=== PATIENT | female | born 2000 | race Caucasian/White ===

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

== ENCOUNTER 2023-07-19 13:15 | Emergency (ER) | payer MEDICAID, SELFPAY ==
[2023-07-19 13:30] VITALS: BP 117/51; PULSE 88; RESP 20; TEMP 36.9; O2SAT 98; BMI 20.6
--- NOTE | 2023-07-19 13:39 | EXP.UTC ---
Discharge Plan Disposition Patient Disposition: Home, Self-Care Condition: Good Prescriptions Prescriptions: New ciprofloxacin HCl [Cipro] 500 mg tablet 500 mg PO BID 10 Days Qty: 20 0RF metronidazole 500 mg tablet 500 mg PO BID Qty: 20 0RF No Action cetirizine [Zyrtec] 10 mg tablet 10 mg PO QDAY 90 Days Qty: 90 3RF diphenhydramine HCl [Benadryl] 25 mg capsule 25 mg PO HS Qty: 90 0RF triamcinolone acetonide 0.025 % lotion See Rx Instructions .ROUTE .COMPLEX Qty: 60 0RF Dose Instruction: APPLY LOTION TOPICALLY TWICE DAILY Rx Instructions: APPLY LOTION TOPICALLY TWICE DAILY patient needs an appt before anymore refills Referrals Follow up/Referrals: Hamlet Garcia MD [Staff Physician] - See instructions Gustavo Shore MD [Primary Care Provider] - See instructions Activity Restrictions/Add. Instructions Additional Instructions/Restrictions: Keep the affected area clean and dry. Follow up with your regular doctor. Follow up with Dr. Garcia (surgery). If this abscess has to be drained this is who you would want to have drain it. Take the antibiotics as directed. Don't drink alcohol while you are on the flagyl (metronidazole). Apply warm wet compresses (or sit in a warm tub or salt water) to the affected area three or four times per day. GO TO THE ER FOR ANY WORSENING SYMPTOMS Clinical Impressions Clinical Impression: Abscess, perirectal Instructions Patient Instructions: Boil Discharge ED Provider: Jose Vyas [facility] General Stated complaint: possible vagina cyst Mode of Arrival: Ambulatory Source of Information: Patient Limitations: No Limitations Time Seen by Provider: 07/19/23 13:39 Description of Symptoms (Recalled from Triage Doc. by RN): PATIENT C/O BOIL/CYST NEAR VAGINAL AREA X 2 WEEKS HEENT Symptoms (Recalled from RN notes): No Resp Symptoms (Recalled from RN notes): No Skin Symptoms (Recalled from RN notes): No MS Symptoms (Recalled from RN notes): No Functional Status (Recalled from RN notes): WNL History of Present Illness Provider Complaint: She states that for the past 1 week she has had a boil close to her anal area. She states that the area has began to swell and become more painful. She denies any fever/chills. Related Data Previous Rx's Medication Instructions Recorded cetirizine 10 mg tablet (Zyrtec) 10 mg PO QDAY 90 days #90 tabs 11/22/21 diphenhydramine HCl 25 mg capsule 25 mg PO HS #90 caps 11/22/21 (Benadryl) triamcinolone acetonide 0.025 % See Rx Instructions .Route 03/17/23 lotion .COMPLEX #60 mL ciprofloxacin HCl 500 mg tablet 500 mg PO BID 10 days #20 tabs 07/19/23 (Cipro) metronidazole 500 mg tablet 500 mg PO BID #20 tabs 07/19/23 Allergies Allergy/AdvReac Type Severity Reaction Status Date / Time No Known Allergies Allergy Verified 11/22/21 15:50 Worker's Comp Is this a Worker's Comp case?: [facility] Dis[facility]: The information contained in this section may have been updated after the patient was seen, as this information can be updated by other users. Social History Smoking Status: Never smoker alcohol intake: never substance use type: denies use current occupational status: student Travel in the last 8 weeks: None household members: family housing: house ROS Obtained: Yes All systems reviewed & no additional complaints except as documented Constitutional Constitutional: Denies chills and Denies fever(s) Eyes Eyes: Denies eye discharge ENT Ears, Nose, Mouth, and Throat: Denies dizziness, Denies otalgia and Denies sore throat Cardiovascular Cardiovascular: Denies chest pain Respiratory Respiratory: Denies shortness of breath, Denies chest congestion, Denies cough, Denies stridor and Denies wheezing Gastrointestinal Gastrointestingal: Denies nausea or vomiting Musculoskeletal Musculoskeletal: Reports system reviewed and no additional complaints, except
[2023-07-19 14:25] VITALS: BP 117/51; PULSE 88; RESP 20; TEMP 36.9; O2SAT 98
== END 2023-07-19 14:31 | disposition home or self-care (01) ==
PROVIDERS: Emergency Provider Nurse Practitioner Family; PCP Emergency Medicine
DX: K61.1 Rectal abscess (principal)
CPT/HCPCS: 96372; 99204; 99212; G0463

== ENCOUNTER 2023-09-23 07:18 | Emergency (ER) | payer MEDICAID, SELFPAY ==
[2023-09-23 07:20] VITALS: BP 120/87; PULSE 76; RESP 20; TEMP 36.8; O2SAT 100; BMI 19.2
--- NOTE | 2023-09-23 07:30 | CT_ITS ---
FINAL REPORT TECHNIQUE: Axial CT images were obtained through the facial bones/sinuses. Coronal reformats were obtained. This study was performed with techniques to keep radiation doses as low as reasonably achievable (ALARA). Individualized dose reduction techniques using automated exposure control or adjustment of mA and/or kV according to the patient's size were employed. CLINICAL HISTORY: nasal trauma, swelling and bruising FINDINGS: There is a mildly displaced fracture of the right nasal bone. The orbits are intact. The globes are unremarkable. The visualized sinuses are clear. There is no soft tissue abnormality. IMPRESSION: Mildly displaced right nasal bone fracture. Reviewed, Interpreted and Dictated by Henry Romeo MD Transcribed by Vazquez Albarran Authenticated and [facility]
--- NOTE | 2023-09-23 07:31 | ED_ITS ---
Discharge Plan Disposition Patient Disposition: Home, Self-Care Prescriptions Prescriptions: No Action cetirizine [Zyrtec] 10 mg tablet 10 mg PO QDAY 90 Days Qty: 90 3RF diphenhydramine HCl [Benadryl] 25 mg capsule 25 mg PO HS Qty: 90 0RF triamcinolone acetonide 0.025 % lotion See Rx Instructions .ROUTE .COMPLEX Qty: 60 0RF Dose Instruction: APPLY LOTION TOPICALLY TWICE DAILY Rx Instructions: APPLY LOTION TOPICALLY TWICE DAILY patient needs an appt before anymore refills ciprofloxacin HCl [Cipro] 500 mg tablet 500 mg PO BID 10 Days Qty: 20 0RF metronidazole 500 mg tablet 500 mg PO BID Qty: 20 0RF Referrals Follow up/Referrals: Ash Wade MD [Physician] - See instructions Amber Aguirre PA [Primary Care Provider] - See instructions Eb Castillo III, MD [Staff Physician] - See instructions Poppy Blount APRN [Nurse Practitioner] - See instructions Activity Restrictions/Add. Instructions Additional Instructions/Restrictions: You were evaluated in the emergency department today. You were diagnosed with a nasal bone fracture. Please follow-up with the ENT for further evaluation and management of this. You will need to call them to schedule an appointment. We are providing you with information for our local ENT's. Take Tylenol and ibuprofen every 4-6 hours as needed for pain. Return to the emergency department for new or worsening symptoms. Sinus precautions: * No Nose blowing. * No flying, swimming or deep water submersion. * Avoid straining with bowel movements. * No strenuous activity or lifting/pushing objects weighing more than 20 pounds. * Sleep with your head elevated on 2 pillows. * No smoking/vaping. Clinical Impressions Clinical Impression: Closed fracture nasal bone Qualifiers: Encounter type: initial encounter Qualified Code(s): S02.2XXA - Fracture of nasal bones, initial encounter for closed fracture Instructions Patient Instructions: DI for Nose Fracture, DI for Acute Pain -- Adult Discharge ED Provider: Heather Hermosillo General Adult HPI General Chief complaint: PAIN Stated complaint: swollen nose possible broke nose Time Seen by Provider: 09/23/23 07:23 Mode of Arrival: Ambulatory Source of Information: Patient Limitations: No Limitations Description of Symptoms (Recalled from ER Triage Doc. by RN): Patient reports she was wrestling with a family member 20 minutes ago and got hit in the nose. Swelling is present to the nose. Patient rates pain 8/10. Patient reports a head ache as well. History of Present Illness HPI narrative: This patient is a 23-year-old female who denies significant past medical history presenting to the emergency department for evaluation with concern for nasal pain and swelling. Patient reports that she was wrestling with a family member approximately 20 minutes ago when she was head butted in the nose. She complains of significant swelling and pressure to her face. Pain is an 8 out of 10. She also has a mild headache. She did not lose consciousness. No nasal bleeding noted. She was well prior to this and denies any other injuries. She does not take any anticoagulation. Related Data Previous Rx's Medication Instructions Recorded cetirizine 10 mg tablet (Zyrtec) 10 mg PO QDAY 90 days #90 tabs 11/22/21 diphenhydramine HCl 25 mg capsule 25 mg PO HS #90 caps 11/22/21 (Benadryl) triamcinolone acetonide 0.025 % See Rx Instructions .Route 03/17/23 lotion .COMPLEX #60 mL ciprofloxacin HCl 500 mg tablet 500 mg PO BID 10 days #20 tabs 07/19/23 (Cipro) metronidazole 500 mg tablet 500 mg PO BID #20 tabs 07/19/23 Allergies Allergy/AdvReac Type Severity Reaction Status Date / Time No Known Allergies Allergy Verified 11/22/21 15:50 [facility] Disclaimer: The information contained in this section may have been updated after the patient was seen, as this information can be updated by other users. Social History Smoking Status: Current every day smoker alcohol intake: never substance use type: denies use current occupational status: student Travel in the last 8 weeks: None household members: family housing: house ROS Obtained: Yes All systems reviewed & no additional complaints except as documented Physical Exam General General appearance: alert and in no apparent distress Head Head exam: other (Nasal bridge swelling) Eye Eye exam: Present normal appearance, PERRL and EOMI ENT ENT exam: Present normal oropharynx, mucous membranes moist and normal external ear exam Expanded ENT Exam Nose exam: Present other (Swelling of the nasal bridge without significant deviation. No septal hematoma. Some blood in the left nostril); Absent septal hematoma Neck Neck exam: Present normal inspection, full ROM and trachea midline; Absent tenderness Chest Chest inspection: Present normal inspection and symmetric chest wall rise; Absent tenderness Respiratory Respiratory exam: Present normal lung sounds bilaterally; Absent respiratory distress, wheezes, stridor or accessory muscle use Cardiovascular Cardiovascular exam: Present regular rate and normal rhythm Abdominal Exam Abdominal exam: Present soft; Absent distention, tenderness or guarding Extremities Exam Extremities exam: Present normal inspection, full ROM and normal capillary refill; Absent tenderness or edema Back Exam Back exam: Present normal inspection and full ROM; Absent tenderness Neurological Exam Neurological exam: Present alert, oriented X3, CN II-XII intact and normal gait; Absent motor sensory deficit Psychiatric Psychiatric exam: Present normal affect and normal mood Skin Skin exam: Present warm and dry Medical Decision Making Medical Records Medical records reviewed: Yes I reviewed the patient's medical records. Tc Inquiry Pt receiving controlled substance: No Vital Signs: 09/23/23 07:20 09/23/23 10:03 09/23/23 10:06 Temperature 98.3 F 98.3 F 98.0 F Temperature Source Oral Oral Oral Pulse Rate 94 H 90 Pulse Rate [Right Radial] 76 Respiratory Rate 20 18 16 Blood Pressure 114/76 114/76 Blood Pressure [Right Arm] 120/87 Blood Pressure Mean [Right Arm] 98 Blood Pressure Source Automatic Cuff Blood Pressure Source [Right Arm] Automatic Cuff Blood Pressure Position Sitting Blood Pressure Position [Right Arm] Sitting 02 Sat by Pulse Oximetry 100 Oxygen Delivery Method Room Air Room Air Room Air Lab Data Lab results reviewed: Yes I reviewed the patient's lab results. Lab Results 09/23/23 07:38: Urine HCG, Qual Negative Orders (Tests/Meds): ED MEDICATIONS Discontinued Medications Generic Name Dose Route Start Last Admin Trade Name Freq PRN Reason Stop Dose Admin Acetaminophen 1,000 mg 09/23/23 07:30 09/23/23 07:36 Acetaminophen 500mg Tab PO 09/23/23 07:31 1,000 mg ONCE ONE Administration Ibuprofen 800 mg 09/23/23 07:30 09/23/23 07:36 Ibuprofen 400 Mg Tablet PO 09/23/23 07:31 800 mg ONCE ONE Administration ORDERS Category Date Time Status CT facial bones wo con Stat Cat Scan 09/23/23 07:30 Completed Urine , HCG Qual. Stat Lab 09/23/23 07:38 Completed Medical Decision Narrative: In summary, this patient is a 23-year-old female presenting to the Emergency Department for evaluation of nasal pain and swelling after being hit by a while wrestling. Differential diagnoses considered include but are not limited to nasal fracture, septal hematoma, facial fracture, concussion. Ruling out the most morbid conditions drove assessment. On exam, the patient is well-appearing without significant septal deviation or septal hematoma. Workup included CT scan of the face without contrast. She was given oral Tylenol and ibuprofen for pain.. I independently interpreted CT scan prior to the radiologist read and noted displaced right nasal bone fracture. Please see their read for final interpretation. Given that the patient does not have severe displacement and has no septal hematoma, feel that she is appropriate for discharge with outpatient follow-up with ENT. She was given instructions for supportive management, sinus precautions, and instructions for close patient follow-up with ENT. She was given strict return precautions. She was discharged in stable condition after all questions were answered. Critical Care Critical Care Time Critical Care Time: No
[2023-09-23] MEDS: ACETAMINOPHEN 500MG TAB 1000 MG PO (07:36)
[2023-09-23] MEDS: IBUPROFEN 400 MG TABLET 800 MG PO (07:36)
[2023-09-23 08:24] LABS: Urine Pregnancy, HCG Qual. Negative (Negative)
--- NOTE | 2023-09-23 09:47 | PC.NURSE ---
DR PEDERSON AT BEDSIDE TO UPDATE PT AND FAMILY
[2023-09-23 10:03] VITALS: BP 114/76; PULSE 94; RESP 18; TEMP 36.8; O2SAT 97
[2023-09-23 10:06] VITALS: BP 114/76; PULSE 90; RESP 16; TEMP 36.7; O2SAT 98
== END 2023-09-23 10:05 | disposition home or self-care (01) ==
PROVIDERS: Emergency Provider Emergency Medicine; PCP Physician Assistant
DX: S02.2XXA Fracture of nasal bones, initial encounter for closed fracture (principal); W50.0XXA Accidental hit or strike by another person, initial encounter; R51.9 Headache, unspecified; F17.200 Nicotine dependence, unspecified, uncomplicated
CPT/HCPCS: 70486; 81025; 99284

== ENCOUNTER 2024-04-29 11:23 | Outpatient (CLI) | payer MEDICAID, SELFPAY ==
--- NOTE | 2024-04-29 11:28 | XR_ITS ---
FINAL REPORT TECHNIQUE: Chest PA & Lateral CLINICAL HISTORY: Chest wall mass, knot above left breast on chest wall COMPARISON: None FINDINGS: 2 views of the chest were performed. The heart size is normal. The mediastinum is within normal limits. There is no acute cardiopulmonary process. There are no pleural effusions. There is no pneumothorax. The bony thorax appears intact. IMPRESSION: No acute cardiopulmonary process. Reviewed, Interpreted and Dictated by Henry Romeo MD Transcribed by Paty Jonas Authenticated and [facility]
== END 2024-04-29 23:59 | disposition home or self-care (01) ==
LOC: RAD 11:24
PROVIDERS: PCP Physician Assistant; Visit Provider Physician Assistant
DX: R22.2 Localized swelling, mass and lump, trunk (principal)
CPT/HCPCS: 71046

== ENCOUNTER 2024-05-11 19:27 | Emergency (ER) | payer MEDICAID, SELFPAY ==
[2024-05-11 19:27] VITALS: BP 150/82; PULSE 83; RESP 19; TEMP 36.6; O2SAT 100; BMI 20.1
--- NOTE | 2024-05-11 19:27 | ECG_ITS ---
APPROVED REPORT Exam: Resting ECG HR:92 bpm ECG Measurements Heart Rate 92 AXES MI 149 P 73 QRSd 84 QRS 71 QT 323 T 53 QTc 373 Conclusion sinus rhythm Electronically signed by : JASMINE SUBRAMANIAN, 05/11/2024 21:05:31
--- NOTE | 2024-05-11 19:34 | XR_ITS ---
PROCEDURE INFORMATION: Exam: XR Chest Exam date and time: 05/11/2024 8:16 PM Age: 24 years old Clinical indication: Pain; Chest pressure; Additional info: L sided cp mild, non radiating TECHNIQUE: Imaging protocol: Radiologic exam of the chest. Views: 1 view. COMPARISON: CR XR CHEST 2V 04/29/2024 11:30 AM FINDINGS: Lungs: No evidence of acute pulmonary disease or infiltrates Pleural spaces: No large effusion or pneumothorax. Heart/Mediastinum: No evidence of mediastinal widening or cardiac silhouette enlargement; the mediastinum and heart appear within normal limits for contour and size. Bones/joints: No evidence of acute osseous abnormalities within the visualized portions of the thoracic spine and ribs. Osseous structures appear appropriate for patient age. IMPRESSION: No dense parenchymal consolidation, pleural effusion, or pneumothorax.
[2024-05-11] MEDS: KETOROLAC 30MG/ML VIAL 15 MG IV (19:43)
[2024-05-11 19:46] LABS: Basophils # 0.1 K/mm3 (0-0.2); Basophils % 0.9 % (0.1-2.0); Eosinophils # 0.1 K/mm3 (0.0-0.4); Eosinophils % 1.2 % (0.1-12.0); Hematocrit 43.4 % (37.0-47.0); Hemoglobin 13.8 g/dL (12.2-16.2); Lymphocytes # 2.9 K/mm3 (0.7-4.5); Lymphocytes % 31.8 % (10-50); Mean Corpuscular HGB Conc 31.8 g/dL (31.8-35.4); Mean Corpuscular Hemoglobin 30.7 pg (27.0-31.2); Mean Corpuscular Volume 96.6 fl (81-99); Mean Platelet Volume 8.1 fl (7.4-10.4); Monocytes # 0.8 K/mm3 (0.1-1.0); Monocytes % 8.4 % (1.7-9.3); Neutrophils # 5.3 K/mm3 (1.8-7.8); Neutrophils % 57.7 % (37.0-80.0); Platelet Count 276 K/mm3 (142-424); Red Blood Count 4.49 M/mm3 (4.20-5.40); Red Cell Distribution Width 12.5 % (11.5-17.5); White Blood Count 9.2 K/mm3 (4.8-10.8)
[2024-05-11 19:51] LABS: Alanine Aminotransferase 16 U/L (12-78); Albumin Level 4.7 g/dl (3.5-5.0); Albumin/Globulin Ratio 1.5 (1.1-1.8); Alkaline Phosphatase 40 U/L (38-126); Anion Gap 11.5 mEq/L (5-15); Aspartate Amino Transferase 25 U/L (14-36); Bilirubin,Total 0.6 mg/dl (0.2-1.3); Blood Urea Nitrogen 12 mg/dl (7-17); Calcium 9.5 mg/dl (8.4-10.2); Carbon Dioxide 26 mmol/L (22.0-30.0); Chloride 105 mmol/L (98-107); Creatinine Clearance Estimated 85 mL/min (50-200); Estimated Glomerular Filt Rate 88 ml/min (>60); GFR (African American) 107 ML/MIN (>60); Globulin 3.2 g/dL (1.3-3.2); Glucose 81 mg/dl (74-100); Magnesium 1.9 mg/dl (1.6-2.3); Potassium 3.5 mmoL/L (3.5-5.1); Sodium 139 mmol/L (136-145); Total Protein,Serum 7.9 g/dl (6.3-8.2)
[2024-05-11 20:00] VITALS: BP 111/73; PULSE 66; RESP 16; O2SAT 100
[2024-05-11 20:17] LABS: HCG,Quantitative < 2 mIU/ml (0-5.42); Troponin I < 0.01 ng/ml (0.00-0.034)
--- NOTE | 2024-05-11 20:17 | [facility].EDGENADL ---
Discharge Plan Disposition Patient Disposition: Home, Self-Care Chief Complaint: PAIN Prescriptions Prescriptions: No Action No Known Home Medications Referrals Follow up/Referrals: Amber Aguirre PA [Primary Care Provider] - See instructions Activity Restrictions/Add. Instructions Additional Instructions/Restrictions: Follow-up with your family doctor regarding this visit to the emergency department to establish care and ensure improvement of symptoms. Take Tylenol 1000 mg every 6 hours (4 times daily) and ibuprofen 400 mg every 6 hours (4 times daily) as needed with food and water to prevent GI upset and kidney damage. Clinical Impressions Clinical Impression: Chest pain Print Language Print Language: Tajik Discharge ED Provider: Sukumar Murdock General Adult HPI General Chief complaint: PAIN Stated complaint: painful lump on chest Time Seen by Provider: 05/11/24 19:34 Mode of Arrival: Ambulatory Source of Information: Patient Limitations: No Limitations Description of Symptoms (Recalled from ER Triage Doc. by RN): 24 F presents with c/o a painful lump to her left chest that started approximately 1 month ago. Patient stated this pain is now a pinching pain and she would like it to be checked out. She does not believe she is having cardiac issues. No medical history otherwise. NAD, VSS History of Present Illness HPI narrative: Please note that above description of symptoms, in this electronic medical record under categorization of recalled from ER triage doctor by RN are reflective of an initial nursing assessment, however, is not reflective of my full history and physical exam that was personally taken and clarified. Consequentially, this preceding description of symptoms, which may include the patient's categorized chief complaint in the EMR, do not reflect my personal clinical impression, and the ultimate description of history of present illness and patient stated complaints should be deferred to this section of the note. Unless stated otherwise or congruent with this section of the note, additional signs, symptoms, or incongruence should be interpreted as inaccurate with my clinical impression. Related Data Home Medications ?Medication ?Instructions ?Recorded ?Confirmed No Known Home Medications 04/29/24 04/29/24 Allergies Allergy/AdvReac Type Severity Reaction Status Date / Time No Known Allergies Allergy Verified 04/29/24 10:57 [facility] Disclaimer: The information contained in this section may have been updated after the patient was seen, as this information can be updated by other users. Social History (Reviewed 09/23/23 @ 07:32 by OSIRIS Cesar Smoking Status: Current every day smoker alcohol intake: never substance use type: denies use current occupational status: student Travel in the last 8 weeks: None household members: family housing: house ROS Obtained: Yes All systems reviewed & no additional complaints except as documented Physical Exam General General appearance: alert Head Head exam: atraumatic and normocephalic Eye Eye exam: Present normal appearance, PERRL and EOMI Neck Neck exam: Present trachea midline Chest Chest inspection: Present normal inspection and symmetric chest wall rise Respiratory Respiratory exam: Present normal lung sounds bilaterally; Absent respiratory distress, wheezes, stridor, accessory muscle use or prolonged expiratory phase Cardiovascular Cardiovascular exam: Present regular rate, normal rhythm and other (Pulses equal and symmetric in upper and lower extremities) Abdominal Exam Abdominal exam: Present soft; Absent distention, tenderness or pulsatile mass Extremities Exam Extremities exam: Absent edema Neurological Exam Neurological exam: Present alert, oriented X3 and CN II-XII intact Skin Skin exam: Present warm and dry; Absent cyanosis, diaphoresis or pallor Medical Decision Making Medical Records Medical records reviewed: Yes I reviewed the patient's medical records. Tc Inquiry Pt receiving controlled substance: No Tc was queried for this patient: No Vital Signs: 05/11/24 19:27 05/11/24 20:00 05/11/24 20:30 Temperature 97.8 F Temperature Source Oral Pulse Rate 66 79 Pulse Rate [Left] 83 Respiratory Rate 19 16 11 L Blood Pressure 111/73 122/75 Blood Pressure [Right Arm] 150/82 H Blood Pressure Mean [Right Arm] 104 Blood Pressure Source [Right Arm] Automatic Cuff Blood Pressure Position [Right Arm] Sitting 02 Sat by Pulse Oximetry 100 100 99 Oxygen Delivery Method Room Air Lab Data Lab Results 05/11/24 19:27: WBC 9.2, RBC 4.49, Hgb 13.8, Hct 43.4, MCV 96.6, MCH 30.7, MCHC 31.8, RDW 12.5, Plt Count 276, MPV 8.1, Neut % (Auto) 57.7, Lymph % (Auto) 31.8, [place] % (Auto) 8.4, Eos % (Auto) 1.2, Baso % (Auto) 0.9, Neut # (Auto) 5.3, Lymph # (Auto) 2.9, [place] # (Auto) 0.8, Eos # (Auto) 0.1, Baso # (Auto) 0.1, Sodium 139, Potassium 3.5, Chloride 105, Carbon Dioxide 26, Anion Gap 11.5, BUN 12, Creatinine 0.80, Estimated Creat Clear 85, Estimated GFR 88, Est GFR ( Amer) 107, Glucose 81, Calcium 9.5, Magnesium 1.9, Total Bilirubin 0.6, AST 25, ALT 16, Alkaline Phosphatase 40, Troponin I < 0.01, Total Protein 7.9, Albumin 4.7, Globulin 3.2, Albumin/Globulin Ratio 1.5, HCG, Quant < 2 05/11/24 19:27 05/11/24 19:27 Orders (Tests/Meds): ED MEDICATIONS Discontinued Medications Generic Name Dose Route Start Last Admin Trade Name Freq PRN Reason Stop Dose Admin Ketorolac Tromethamine 15 mg 05/11/24 19:38 05/11/24 19:43 Ketorolac 30mg/Ml Vial IV 05/11/24 19:39 15 mg ONCE ONE Administration ORDERS Category Date Time Status CXR --portable [XR chest portable] Stat Exams 05/11/24 19:34 Taken CBC w/Auto Diff [Complete Blood Count Auto Diff] Stat Lab 05/11/24 19:27 Completed CMP [Comprehensive Metabolic Panel] Stat Lab 05/11/24 19:27 Completed HCG,Quantitative Stat Lab 05/11/24 19:27 Completed Magnesium Stat Lab 05/11/24 19:27 Completed Trop I [Troponin I] Stat Lab 05/11/24 19:27 Completed Troponin I Q3H Lab 05/11/24 22:45 Ordered Troponin I Q3H Lab 05/12/24 01:45 Ordered Medical Decision Narrative: 24-year-old female history of anxiety presenting with multiple complaints. Patient states that she has had chest pain on and off for the past few weeks that is associated with a lump on my chest. States that she saw her family doctor earlier today, 05/11 and chest x-ray was performed and reportedly normal. Patient states that intermittent throughout the day, feels like she is receiving sharp pokes, just over this lump, in her chest. Mild in intensity, does not radiate. No fevers or chills, nausea or vomiting, shortness of breath, cough, hemoptysis, chance of , or any other concerns. Last menstrual period was 8/ and normal for her.. History was obtained via conversation with patient. On arrival, patient hemodynamically stable, alert, oriented x4, appropriate, GCS 15, moving all extremities spontaneously, pupils equal and reactive to light. Full physical exam performed and significant for very well-appearing female who is in no acute distress. Lump, on her chest is costochondral joint and is nontender. Bilateral breath sounds without any abnormalities. Cardiac exam with normal S1-S2, no murmurs gallops or rubs. Pulses equal and symmetric in upper and lower extremities without delay. Differential includes anxiety, costochondritis, pericarditis, less likely to be ACS, UT, PE, among others. Patient placed on continuous cardiac monitoring and continuous pulse ox with initial blood pressure 150/82, heart rate 3, saturation 100% on room air. Independent interpretation of EKG shows performed at 1927 read at 1927. Sinus rhythm 92 beats a minute with no ischemic change. GA 149, QRS 84, QTc 373. Patient was given Toradol IV for symptomatic management and correction of underlying abnormalities. Workup independently interpreted and significant for nonactionable CBC or chemistry. Troponin negative, hCG negative. On independent interpretation of imaging, no acute cardiopulmonary space disease on chest x-ray. See radiology read for full review of final results. Heart score 0. I feel this is most likely related to costochondritis versus anxiety. Because patient at baseline without signs or symptoms of clinical decompensation, deemed appropriate for discharge. Results were relayed to patient who voiced understanding and were agreeable to outpatient management and follow up. I discussed my clinical impression with patient and answered all questions. At this time, the evidence for any other entities in the differential is insufficient to warrant any further testing or ED observation. This was explained as well. Advisory was given that persistent or worsening symptoms require further evaluation. I confirmed the understanding of this discussion. Tape Cutter disclaimer Much of this encounter note is an electronic plunger machine operator spoken language to printed text. Electronic plunger machine operator of the spoken language may permit errors. Although I have reviewed the note, some errors may still exist. Critical Care Critical Care Time Critical Care Time: No
[2024-05-11 20:30] VITALS: BP 122/75; PULSE 79; RESP 11; O2SAT 99
[2024-05-11 21:02] VITALS: BP 117/87; PULSE 70; RESP 16; TEMP 36.9; O2SAT 100
== END 2024-05-11 21:04 | disposition home or self-care (01) ==
PROVIDERS: Emergency Provider Emergency Medicine; PCP Physician Assistant
DX: R07.9 Chest pain, unspecified (principal); F17.210 Nicotine dependence, cigarettes, uncomplicated
CPT/HCPCS: 71045; 80053; 83735; 84484; 84702; 85025; 93005; 96374; 99284; J1885